=== PATIENT | female | born 1965 | race Asian ===

== ENCOUNTER → 2016-09-05 | Day surgery (SDC) | payer OTHER ==
[~2016-09-05] VITALS: Ht 157.5 cm; Wt 67.1 kg
--- NOTE | 2016-09-05 15:02 | Operative Report ---
Operative/Inv Procedure Report Surgery Date: 09/05/16 Name of Procedure: Arthroplasty fifth digit left foot Pre-Operative Diagnosis: Hammer digit fifth digit left foot Post-Operative Diagnosis: Hammer digit fifth digit left foot Estimated Blood Loss: scant Surgeon/Furrier Apprentice: Surgeon Christian MCNULTY DPM,CHRISTIAN Han Anesthesia: local monitored anesthesi Monitors: With the patient in a supine position a sterile orthopedic scrub and drape were done to the left foot up to including including medial and lateral malleolus. The patient under local anesthesia 7 mL lidocaine 1% plain were used to give a field block to the fifth digit left foot. Using a #15 scalpel blade a semielliptical incision eyelid-like incision was made around the lesion over the proximal interphalangeal joint fifth digit left foot and the excision of the skin was performed toto. At this point in time the cage use of a new #15 scalpel blade went down to the extensor tendon and made a transverse tenotomy through the extensor tendon and reflected the tendon proximally over the proximal phalanx preoperative site with the head of proximal phalanx exposed I engaged use of an oscillating saw to remove the proximal phalanx fifth digit left foot. Once the head was removed and irrigated the site with saline solution 5 mL reapproximate the tendon and sutured the tendon using 4-0 Vicryl absorbable sutures 2 and number to reapproximate the tendon. Using the same 4-0 Vicryl absorbable suture 3 simple interrupted sutures were used to remove approximate the superficial subcutaneous tissue and then finally using 5-0 nylon one continuous horizontal mattress suture was used to reapproximate skin edges. Having completed the procedures above. Put Xeroform over the surgical site, fluff dressing, Vijay dressing and a 4 for comfort forefoot compression dressing using Coban. The patient was then discharged from the OR stable vital signs. She was given postop directions including Percocet 5/3 325 mg 1 tablet every 4 hours for pain management, Keflex 500 mg 1 tablet every 6 hours for the next 10 days and ibuprofen or an NSAID for pain management over the next 30 days. Patient was instructed to be seen on Saturday, September 2 and [place], [place] signed Christian mcnulty DPM Specimens: Bone scented with sent for pathology Microbiology: No significant microbiology at this time Tourniquet: Tourniquet kiddie cuff applied left foot Complications: Complications none Condition: Condition patient stable tolerated procedure well Operative Indication: Hammer digit deformity fifth digit left foot with painful corns or calluses on the dorsal aspect fifth digit left foot Operative/Procedure Note Note: Operative note dictated and submitted
== END ==
LOC: STS 03:49
DX: M20.42 Other hammer toe(s) (acquired), left foot (principal); J45.909 Unspecified asthma, uncomplicated
CPT/HCPCS: 81025; 88304; J0131; J0690; J2001; J2250